=== PATIENT | male | born 1955 | race Caucasian/White ===

== ENCOUNTER 2018-01-14 11:11 | Emergency (ER) | payer OTHER ==
[2018-01-14 12:02] VITALS: TEMP 97.7
[2018-01-14] MEDS ORDERED: ACETAMINOPHEN TAB 325 MG TAB PO STA (12:28)
--- NOTE | 2018-01-14 12:32 | ED ---
Fall HPI - General Chief Complaint: Fall Stated Complaint: [facility] Fall- approx 8 ft Time Seen by Provider: 01/14/18 12:20 Source: patient Mode of arrival: wheelchair - History of Present Illness Initial Comments: This 62-year-old white male presents complaining of falling approximate 6-8 feet off a ladder. He apparently landed on his right side. He is complaining of right rib pain. This is much worse with any deep inspiration or with certain movements. He also hit the occipital area of his head and is complaining of some swelling to this area. He apparently did lose consciousness. He denies any nausea or vomiting. He denies any other neurologic complaints. He complains of some mild neck soreness. He denies any other injuries. He is not on any blood thinners. He does have a history of previous renal transplant in 2008. He denies any other complaints or modifying factors. - Related Data Home Medications Medication Instructions Recorded Confirmed predniSONE 5 mg PO DAILY 10/20/13 01/14/18 Lisinopril [Zestril] 5 mg PO DAILY 01/14/18 01/14/18 Mycophenolate Mofetil [Cellcept] 500 mg PO BID 01/14/18 01/14/18 Ranitidine HCl [Zantac] 75 mg PO DAILY 01/14/18 01/14/18 Simvastatin [Zocor] 20 mg PO HS 01/14/18 01/14/18 Tacrolimus [Prograf] 1 mg PO Q12H 01/14/18 01/14/18 Allergies Allergy/AdvReac Type Severity Reaction Status Date / Time No Known Allergies Allergy Verified 01/14/18 12:25 Review of Systems ROS Statement: Those systems with pertinent positive or pertinent negative responses have been documented in the HPI. ROS Other: All systems not noted in ROS Statement are negative. Past Medical History Past Medical History: Renal Disease History of Any Multi-Drug Resistant Organisms: None Reported Additional Past Surgical History / Comment(s): kidney transplant Past Psychological History: No Psychological Hx Reported Smoking Status: Former smoker Past Alcohol Use History: None Reported Past Drug Use History: None Reported General Exam - General Exam Comments Initial Comments: GENERAL: The patient is well nourished and well hydrated. VITAL SIGNS: Heart rate, blood pressure, respiratory rate reviewed as recorded in nurse's notes. EYES: Pupils are round and reactive. Extraocular movements are intact. No conjunctival / lid redness or swelling. ENT: There is tenderness and mild swelling noted to the occipital region. Airway is patent. Throat is clear. NECK: There is mild diffuse tenderness to the neck. No swelling or evidence of injury. No subcutaneous emphysema. Trachea is midline. No thyroid mass. HEART: Regular rate and rhythm. Good peripheral pulses. LUNGS/CHEST: Breath sounds clear and equal bilaterally. No rales, rhonchi, or wheezes. Tenderness is noted to the right lateral ribs. ABDOMEN: Abdomen soft without tenderness. No palpable masses or organomegaly. No peritoneal signs. No abdominal wall swelling or ecchymosis. EXTREMITIES: No extremity tenderness. Normal muscle tone and function. No thoracolumbar tenderness. NEUROLOGIC: Sensation is grossly intact. Cranial nerve exam reveals face is symmetrical, tongue is midline, speech is clear. SKIN: No abrasions or ecchymosis is noted. No induration or masses noted. PSYCHIATRIC: Alert and oriented. Appropriate behavior and judgment. Limitations: no limitations Course Vital Signs 01/14/18 01/14/18 11:57 13:52 Temperature 97.7 F Pulse Rate 85 84 Respiratory 20 18 Rate Blood Pressure 122/83 126/84 O2 Sat by Pulse 98 94 L Oximetry Medical Decision Making - Medical Decision Making The patient was seen and examined. All diagnostics are reviewed. He does receive some Tylenol for his pain. He states that he cannot have any Toradol or NSAIDs due to his history of renal cell transplant. He is deferring any narcotics initially. The x-ray of the ribs came back showing nondisplaced fractures on the right ribs from 7 through 9. There is no identifiable pneumothorax. The AP pelvis x-rays negative. The laboratory overall is unremarkable. The patient also had a computed tomography scan of the brain which showed some soft tissue swelling but no acute intracranial abnormalities. The cervical spine computed tomography scan does show mild superior endplate compression fractures of C6 and C7 without bony retropulsion. There is estimated loss of height approximate 10-20%. Fractures are also noted to extend into the pedicles of C5, C6, and C7 on the right without contralateral component. Alignment is anatomic at this time. The patient denies any significant relief with the Tylenol. He is given 4 mg of morphine intravenously for his pain. I did attempt to contact Dr. Patel who is on-call at [facility] from neurosurgery. Is unable to obtain a call back. Case is discussed with Dr. xiomy silva from trauma surgery and he would like the patient transferred to [facility]. The case is discussed with Dr. Perez from the emergency department and he is agreeable to admission. The patient is agreeable to transfer. Appropriate transfer paperwork is completed. - Lab Data Result diagrams: 01/14/18 14:07 01/14/18 14:07 Lab Results 01/14/18 01/14/18 01/14/18 Range/Units 14:07 14:07 14:07 WBC 13.3 H (3.8-10.6) k/uL RBC 4.21 L (4.30-5.90) m/uL Hgb 12.6 L (13.0-17.5) gm/dL Hct 38.3 L (39.0-53.0) % MCV 90.9 (80.0-100.0) fL MCH 29.8 (25.0-35.0) pg MCHC 32.8 (31.0-37.0) g/dL RDW 13.0 (11.5-15.5) % Plt Count 207 (150-450) k/uL Neutrophils % 93 % Lymphocytes % 2 % Monocytes % 4 % Eosinophils % 0 % Basophils % 0 % Neutrophils # 12.4 H (1.3-7.7) k/uL Lymphocytes # 0.2 L (1.0-4.8) k/uL Monocytes # 0.5 (0-1.0) k/uL Eosinophils # 0.0 (0-0.7) k/uL Basophils # 0.0 (0-0.2) k/uL PT 10.4 (9.0-12.0) sec INR 1.1 (<1.2) APTT 22.1 (22.0-30.0) sec Sodium 138 (137-145) mmol/L Potassium 4.7 (3.5-5.1) mmol/L Chloride 109 H (98-107) mmol/L Carbon Dioxide 20 L (22-30) mmol/L Anion Gap 9 mmol/L BUN 24 H (9-20) mg/dL Creatinine 1.21 (0.66-1.25) mg/dL Est GFR (CKD-EPI)AfAm 75 (>60 ml/min/1.73 sqM) Est GFR (CKD-EPI)NonAf 64 (>60 ml/min/1.73 sqM) Glucose 109 H (74-99) mg/dL Calcium 9.6 (8.4-10.2) mg/dL Total Bilirubin 0.6 (0.2-1.3) mg/dL AST 50 (17-59) U/L ALT 50 (21-72) U/L Alkaline Phosphatase 57 (38-126) U/L Total Protein 6.9 (6.3-8.2) g/dL Albumin 4.4 (3.5-5.0) g/dL Amylase 88 (30-110) U/L Lipase 125 (23-300) U/L Serum Alcohol <10 mg/dL Disposition Clinical Impression: Fall, Head injury, Syncope, Right rib fracture, Closed cervical spine fracture , Concussion, History of renal transplant Disposition: OTHER INSTITUTION NOT DEFINED Condition: Good Is patient prescribed a controlled substance at d/c from ED?: No Time of Disposition: 15:03 - Out of Hospital Transfer - Req. Specs Out of Hospital Transfer - Requested Specifics: Other Emergency Center ([facility])
--- NOTE | 2018-01-14 12:59 | XR ---
EXAMINATION TYPE: XR ribs RT w pa chest xray DATE OF EXAM: 01/14/2018 COMPARISON: NONE HISTORY: Pain TECHNIQUE: Single view of the chest 4 views of the ribs are submitted. FINDINGS: The lungs are clear. No Evidence for pneumothorax. No evidence for focal contusion. Medi astinal structures are midline. Evaluation of the ribs demonstrates nondisplaced fractures of right ribs 7 and 8 and possibly 9. IMPRESSION: 1. Nondisplaced right-sided rib fractures as noted. 2. No evidence for sizable pneumothorax this time.
[2018-01-14] MEDS ORDERED: SODIUM CHLORIDE 0.9% 1,000 ML IV ONE (13:50)
--- NOTE | 2018-01-14 13:50 | CT ---
EXAMINATION TYPE: CT brain lia lloyd DATE OF EXAM: 01/14/2018 COMPARISON: None HISTORY: pain post fall CT DLP: [address] of the brain was performed. The ventricles, basal cisterns and sulci overlying the cerebral convexities demonstrate mild enlargem ent. There is no evidence for intracranial hemorrhage or sulcal effacement. There is decreased attenuatio n about the periventricular white matter and deep white matter of both cerebral hemispheres, compatib le with chronic small vessel ischemia. No mass effects are seen. If symptoms persist consider MRI. Osseous calvarium is intact. Occipital scalp hematoma. Left temporal scalp hematoma noted as well. IMPRESSION: 1. Age related atrophic and chronic small vessel ischemic change without acute intracranial process seen at this time. CT Cervical Spine: Unenhanced CT of the cervical spine was performed with bone and soft tissue window settings submitted . Coronal and sagittal reconstruction is obtained. There is superior endplate loss of height involving cervical vertebral segments 6 and 7. Fractures ar e noted to extend into the right-sided pedicles of C5, C6 and C7. No additional fracture seen at this time. Alignment appears to be within normal limits. Mild prevertebral soft tissue swelling noted. IMPRESSION: 1. Mild superior endplate compression fractures of C6 and C7 without bony retropulsion. Estimated los s of height is approximately 10-20%. Fractures are also noted to extend into the pedicles of C5-C6 an d C7 on the right without contralateral component. Alignment is anatomic at this time.
[2018-01-14 13:54] VITALS: RESP 18
[2018-01-14] MEDS ORDERED: MORPHINE SULFATE 4 MG/ML SYRINGE IV STA (14:02)
[2018-01-14 14:19] LABS: Basophils % (A) 0 %; Eosinophils % (A) 0 %; HCT 38.3 % (39.0-53.0); HGB 12.6 gm/dL (13.0-17.5); Lymphocytes # (A) 0.2 k/uL (1.0-4.8); Lymphocytes % (A) 2 %; MCH 29.8 pg (25.0-35.0); MCHC 32.8 g/dL (31.0-37.0); MCV 90.9 fL (80.0-100.0); Mean Platelet Volume 6.6; Monocytes # (A) 0.5 k/uL (0-1.0); Monocytes % (A) 4 %; Neutrophils # (A) 12.4 k/uL (1.3-7.7); Neutrophils % (A) 93 %; Platelet Count 207 k/uL (150-450); RBC 4.21 m/uL (4.30-5.90); WBC 13.3 k/uL (3.8-10.6)
[2018-01-14 14:30] LABS: ALT 50 U/L (21-72); AST 50 U/L (17-59); Albumin 4.4 g/dL (3.5-5.0); Alcohol <10 mg/dL; Alkaline Phosphatase 57 U/L (38-126); Amylase 88 U/L (30-110); Anion Gap 9 mmol/L; Blood Urea Nitrogen 24 mg/dL (9-20); Calcium 9.6 mg/dL (8.4-10.2); Carbon Dioxide 20 mmol/L (22-30); Chloride 109 mmol/L (98-107); Glucose 109 mg/dL (74-99); Lipase 125 U/L (23-300); Potassium 4.7 mmol/L (3.5-5.1); Sodium 138 mmol/L (137-145); Total Bilirubin 0.6 mg/dL (0.2-1.3); Total Protein 6.9 g/dL (6.3-8.2)
[2018-01-14 14:40] LABS: INR 1.1 (<1.2); Partial Thromboplastin Time 22.1 sec (22.0-30.0); Prothrombin Time 10.4 sec (9.0-12.0)
--- NOTE | 2018-01-14 14:46 | XR ---
EXAMINATION TYPE: XR pelvis AP view DATE OF EXAM: 01/14/2018 CLINICAL HISTORY: pain TECHNIQUE: Single view the pelvis is submitted. FINDINGS: No evidence for fracture, dislocation or bony lesion. Joint spaces are well-preserved. S I joints appear symmetric. IMPRESSION: 1. No acute fracture or dislocation seen. ICD 10 NO FRACTURE, INITIAL EVALUATION
[2018-01-14 15:29] VITALS: BP 129/83; PULSE 86
== END 2018-01-14 15:30 | disposition other institution (70) ==
LOC: EC 11:11
DX: S12.400A Unspecified displaced fracture of fifth cervical vertebra, initial encounter for closed fracture (principal); S12.500A Unspecified displaced fracture of sixth cervical vertebra, initial encounter for closed fracture; S12.600A Unspecified displaced fracture of seventh cervical vertebra, initial encounter for closed fracture; S22.41XA Multiple fractures of ribs, right side, initial encounter for closed fracture; S06.0X0A Concussion without loss of consciousness, initial encounter; R55 Syncope and collapse; Z94.0 Kidney transplant status; Z87.891 Personal history of nicotine dependence; Z79.52 Long term (current) use of systemic steroids; Z53.29 Procedure and treatment not carried out because of patient's decision for other reasons; Z79.899 Other long term (current) drug therapy; W11.XXXA Fall on and from ladder, initial encounter; Y99.0 Civilian activity done for income or pay
CPT/HCPCS: 36415; 70450; 72125; 72170; 80053; 80320; 82150; 83690; 85025; 85610; 85730; 93005; 96360; 99285